=== PATIENT | female | born 2000 | race Caucasian/White ===

== ENCOUNTER 2022-02-02 14:29 | Emergency (ER) | payer OTHER ==
[2022-02-02 16:59] VITALS: BP 142/79; PULSE 105; RESP 18; TEMP 99.2; BMI 30.9
[2022-02-02] MEDS ORDERED: ACETAMINOPHEN 500 MG TABLET (FP) PO ONE ×2 (17:40)
== END 2022-02-02 19:10 | disposition home or self-care (01) ==
LOC: JER 14:29
DX: J09.X2 Influenza due to identified novel influenza A virus with other respiratory manifestations (principal); J02.8 Acute pharyngitis due to other specified organisms
CPT/HCPCS: 0241U-QW; 71046-TC-FY; 99281-25

== ENCOUNTER 2022-10-17 15:08 | Emergency (ER) | payer OTHER ==
[2022-10-17 15:19] VITALS: BP 128/84; RESP 18; TEMP 98; BMI 31.8
[2022-10-17] MEDS ORDERED: ACETAMINOPHEN 325 MG TABLET (FP) PO ONE (16:01)
[2022-10-17] MEDS ORDERED: IBUPROFEN 400 MG TABLET (FP) PO ONE ×2 (16:01→16:02)
[2022-10-17] MEDS ORDERED: ACETAMINOPHEN 325 MG TABLET (FP) ONE (16:01)
[2022-10-17 16:15] VITALS: PULSE 85
== END 2022-10-17 16:18 | disposition home or self-care (01) ==
LOC: JERFT 15:08
DX: M54.6 Pain in thoracic spine (principal); M25.512 Pain in left shoulder; V49.50XA Passenger injured in collision with unspecified motor vehicles in traffic accident, initial encounter
CPT/HCPCS: 99283-25